=== PATIENT | male | born 1950 | race Caucasian/White ===

== ENCOUNTER 2021-05-26 09:07 | Day surgery (SDC) | payer OTHER, BC ==
[2021-05-22 13:08] VITALS: BMI 34.4
[2021-05-26 11:11] VITALS: BP 123/64; PULSE 76; TEMP 98.4
== END 2021-05-26 11:30 | disposition home or self-care (01) ==
LOC: FASU-ENDO 09:07
PROVIDERS: ATTEND Internal Medicine Gastroenterology
PROC: 0DBN8ZX Excision of Sigmoid Colon, Via Natural or Artificial Opening Endoscopic, Diagnostic (ICD-10-PCS; 2021-05-26)
PROC: 0DBL8ZX Excision of Transverse Colon, Via Natural or Artificial Opening Endoscopic, Diagnostic (ICD-10-PCS; principal; 2021-05-26 10:29)
DX: Z12.11 Encounter for screening for malignant neoplasm of colon (principal); K63.5 Polyp of colon; K57.30 Diverticulosis of large intestine without perforation or abscess without bleeding
CPT/HCPCS: 88305-TC